=== PATIENT | male | born 1980 | race Caucasian/White ===

== ENCOUNTER 2017-09-02 15:56 | Emergency (ER) | payer OTHER ==
[~2017-09-02] VITALS: Ht 167.6 cm; Wt 75.0 kg
[2017-09-02 17:17] VITALS: BP 157/86
== END 2017-09-02 17:16 | disposition home or self-care (01) ==
LOC: ED 15:56
DX: S56.221A Laceration of other flexor muscle, fascia and tendon at forearm level, right arm, initial encounter (principal); S51.811A Laceration without foreign body of right forearm, initial encounter; W22.8XXA Striking against or struck by other objects, initial encounter